=== PATIENT | male | born 1980 | race Hispanic/Latino ===

== ENCOUNTER 2017-11-16 18:05 | Observation (INO) | payer OTHER, SELFPAY ==
[2017-11-16 19:46] LABS: #Basophils 0.1 thou/uL (0.0-0.2); #Eosinphils 0.5 thou/uL (0.0-0.7); #Lymphocytes 1.7 thou/uL (1.20-3.40); #Monocytes 0.6 thou/uL (0.11-0.59); #Neutrophils 8.8 thou/uL (1.40-6.50); %Basophils 0.5 % (0.0-1.0); %Eosinophils 4.2 % (0.0-10.0); %Lymphocytes 14.3 % (21.0-51.0); %Monocytes 5.5 % (0.0-10.0); %Neutrophils 75.4 % (42.0-75.0); Hemoglobin 16.4 g/dL (14.0-18.0); Mean Corpuscular HGB CONC 34.3 g/dL (32.0-36.0); Mean Corpuscular Hemoglobin 29.8 pg (27.0-31.0); Mean Platelet Volume 7.1 fL (7.4-10.4); Platelet Count 264 thou/uL (130-400); RBC Distribution Width 13.3 % (11.5-14.5); Red Blood Cell (RBC) Count 5.51 mill/uL (4.70-6.10); White Blood Cell (WBC) Count 11.6 thou/uL (4.8-10.8)
[2017-11-16 19:53] LABS: Prothrombin Time 13.4 SEC (12.0-14.7)
[2017-11-16 19:54] LABS: PTT 30.5 SEC (22.9-36.1)
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
[2017-11-16 20:11] LABS: Acetaminophen Less than 6.0 mcg/mL (10.0-30.0); Alcohol 129 mg/dL (Less than 10); Salicylate Less than 8.0 mg/dL (15.0-30.0)
[2017-11-16 20:13] LABS: ALT (SGPT) 20 U/L (8-55); AST (SGOT) 25 U/L (5-34); Albumin 4.8 g/dL (3.5-5.0); Alkaline Phosphatase 94 U/L (40-150); Anion Gap 14 mmol/L (10-20); BUN (Urea Nitrogen) 7 mg/dL (8.9-20.6); Bilirubin, Total 0.9 mg/dL (0.2-1.2); Calc. Creatinine Clearance 0 mL/min (70-130); Calcium 9.4 mg/dL (7.8-10.44); Carbon Dioxide 27 mmol/L (22-29); Chloride 103 mmol/L (98-107); Estimated GFR-MDRD Greater than 90; Globulin 3.4 g/dL (2.4-3.5); Glucose 109 mg/dL (70-105); Potassium 3.9 mmol/L (3.5-5.1); Protein, Total 8.2 g/dL (6.0-8.3); Sodium 140 mmol/L (136-145)
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
[2017-11-16] MEDS ORDERED: Oxymetazoline HCl 0.05% ( 15 ML ) ONE (20:27)
[2017-11-16] MEDS ORDERED: Morphine 2 MG/ML SYRINGE ONE (20:53)
[2017-11-16] MEDS ORDERED: Ondansetron HCl/PF 4 MG/2 ML Vial ONE (21:14)
[2017-11-16] MEDS ORDERED: Lidocaine 2% PF 5 ML VIAL ONE (21:42)
[2017-11-16] MEDS ORDERED: Lidocaine 1% w/Epinephrine 1:100K 20 ML VIAL ONE (21:58)
[2017-11-16] MEDS ORDERED: Lidocaine 2% w/Epinephrine 1:200K 20 ML VIAL FS SCH (22:00)
[2017-11-16] MEDS ORDERED: Lidocaine 1% w/Epinephrine 1:100K 20 ML VIAL IJ SCH (22:00)
[2017-11-16] MEDS ORDERED: Acetaminophen 325 MG TAB ONE (23:39)
[2017-11-16] MEDS ORDERED: Adacel (T-DAP) 0.5 ML VIAL ONE (23:39)
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
[2017-11-17] MEDS ORDERED: Ondansetron HCl/PF 4 MG/2 ML Vial IVP PRN (00:53)
[2017-11-17] MEDS ORDERED: Promethazine HCl 25 MG/ML VIAL IM PRN ×2 (00:53)
[2017-11-17] MEDS ORDERED: hydrALAZINE 20 MG/ML VIAL SLOW IVP PRN (00:53)
[2017-11-17] MEDS ORDERED: Ondansetron ODT 4 MG TAB PO PRN (00:53)
[2017-11-17] MEDS ORDERED: Oxymetazoline HCl 0.05% ( 15 ML ) NASAL PRN (00:53)
[2017-11-17] MEDS ORDERED: Dextrose 5% in Water 1,000 ML IV PRN (00:53)
[2017-11-17] MEDS ORDERED: Dextrose 50% Abboject 50 ML SYRINGE SLOW IVP PRN (00:53)
[2017-11-17 01:18] VITALS: BMI 22.8
[2017-11-17] MEDS: Clindamycin 150 MG CAP PO SCH ×2 (01:56→09:27)
[2017-11-17] MEDS: Sodium Chloride 0.9% 1,000 ML IV SCH ×2 (02:01→10:23)
[2017-11-17] MEDS: traMADol HCl 50 MG TAB PO SCH ×2 (02:05→08:53)
[2017-11-17 05:11] LABS: #Basophils 0.1 thou/uL (0.0-0.2); #Eosinphils 0.3 thou/uL (0.0-0.7); #Lymphocytes 2.5 thou/uL (1.20-3.40); #Monocytes 1.5 thou/uL (0.11-0.59); %Basophils 0.5 % (0.0-1.0); %Eosinophils 2.5 % (0.0-10.0); %Lymphocytes 18.5 % (21.0-51.0); %Monocytes 11.1 % (0.0-10.0); %Neutrophils 67.4 % (42.0-75.0); Hemoglobin 13.4 g/dL (14.0-18.0); Mean Corpuscular Hemoglobin 28.6 pg (27.0-31.0); Mean Corpuscular Volume 86.7 fl (80.0-94.0); Mean Platelet Volume 7.3 fL (7.4-10.4); Platelet Count 220 thou/uL (130-400); Red Blood Cell (RBC) Count 4.67 mill/uL (4.70-6.10); White Blood Cell (WBC) Count 13.4 thou/uL (4.8-10.8)
[2017-11-17] MEDS: Acetaminophen 500 MG TAB PO SCH ×2 (05:46→11:45)
[2017-11-17 05:48] LABS: Anion Gap 11 mmol/L (10-20); BUN (Urea Nitrogen) 15 mg/dL (8.9-20.6); Calc. Creatinine Clearance 120 mL/min (70-130); Calcium 8.5 mg/dL (7.8-10.44); Carbon Dioxide 25 mmol/L (22-29); Chloride 104 mmol/L (98-107); Estimated GFR-MDRD Greater than 90; Glucose 104 mg/dL (70-105); Phosphorus 3.4 mg/dL (2.3-4.7); Potassium 4.1 mmol/L (3.5-5.1); Sodium 136 mmol/L (136-145)
[2017-11-17 07:55] VITALS: BP 128/72; TEMP 98.1
[2017-11-17] MEDS ORDERED: FLU VACC QS2017-18 36 mo. & older 0.5 ML SYRINGE IM ONE (09:00)
[2017-11-17] MEDS ORDERED: Famotidine 20 MG TAB PO SCH (09:00)
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
== END 2017-11-17 12:55 | disposition home or self-care (01) ==
LOC: ERS 18:05 → INTOOBSV 21:59 → SURG A 21:59
PROVIDERS: ADMIT Surgery; ATTEND Surgery
DX: S02.2XXA Fracture of nasal bones, initial encounter for closed fracture (principal); S01.511A Laceration without foreign body of lip, initial encounter; F10.129 Alcohol abuse with intoxication, unspecified; G89.11 Acute pain due to trauma; F17.210 Nicotine dependence, cigarettes, uncomplicated; Y90.6 Blood alcohol level of 120-199 mg/100 ml; V47.5XXA Car driver injured in collision with fixed or stationary object in traffic accident, initial encounter
CPT/HCPCS: 36415; 70450; 70486; 71045; 72125; 72170; 80048; 80053; 80307; 83735; 84100; 85025; 85610; 85730; 90471; 90682; 90715; 93005; 96361; 96374; 96375; G0008; G0378; G0390; J0360; J2001; J2270; J2405; Q2036

== ENCOUNTER 2017-11-25 06:18 | Day surgery (SDC) | payer OTHER, SELFPAY ==
[2017-11-17 17:14] VITALS: BMI 23.5
[2017-11-25] MEDS ORDERED: Lidocaine 0.5%/Epinephrine 1:200,000 50 ml Vial ONE (06:57)
[2017-11-25] MEDS ORDERED: Oxymetazoline HCl 0.05% ( 15 ML ) ONE (06:57)
[2017-11-25] MEDS ORDERED: Fentanyl 250 MCG/5 ML VIAL ONE ×2 (06:58→08:34)
[2017-11-25] MEDS ORDERED: CEFAZOLIN/Water 2 GM/20 ML SYRINGE ONE (07:11)
[2017-11-25] MEDS ORDERED: Lidocaine 1% w/Epinephrine 1:200K 30 ML VIAL ONE (07:11)
[2017-11-25] MEDS ORDERED: Dexamethasone 4 mg/ml Vial ONE (07:12)
[2017-11-25] MEDS ORDERED: Bacitracin Zinc Ointment 30 gm TUBE ONE (07:40)
[2017-11-25] MEDS ORDERED: Morphine 2 MG/ML SYRINGE ONE (08:29)
[2017-11-25] MEDS ORDERED: Sodium Chloride 0.9% 10 ML ONE (09:15)
[2017-11-25] MEDS ORDERED: HYDROcodone/Acetaminophen 5/325 mg Tablet ONE (09:24)
[2017-11-25] MEDS ORDERED: Ondansetron HCl/PF 4 MG/2 ML Vial ONE (13:44)
[2017-11-25] MEDS ORDERED: Propofol 200 MG/20 ML VIAL ONE (13:44)
[2017-11-25] MEDS ORDERED: Dexamethasone 20 MG/5 ML VIAL ONE (13:44)
[2017-11-25] MEDS ORDERED: Lidocaine 1% PF 5 ML VIAL ONE (13:44)
[2017-11-25] MEDS ORDERED: Ketorolac Tromethamine 30 MG/ML VIAL ONE (13:44)
[2017-11-25] MEDS ORDERED: Succinylcholine Chloride 20 MG/ML 10 ml SYRINGE FS ONE (13:44)
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
== END 2017-11-25 10:05 | disposition home or self-care (01) ==
LOC: SDC 06:18
PROVIDERS: ATTEND Dentist Oral and Maxillofacial Surgery
PROC: 0NSBXZZ Reposition Nasal Bone, External Approach (ICD-10-PCS; principal; 2017-11-25)
DX: S02.2XXA Fracture of nasal bones, initial encounter for closed fracture (principal); I10 Essential (primary) hypertension; G89.11 Acute pain due to trauma; Z79.2 Long term (current) use of antibiotics; Z79.899 Other long term (current) drug therapy
CPT/HCPCS: 96374; A4216; J0131; J1100; J1885; J2001; J2270; J2405; J2704; J3010